=== PATIENT | female | born 1965 | race Caucasian/White ===

== ENCOUNTER 2024-02-14 09:42 | Day surgery (SDC) | payer MEDICARE, OTHER ==
[~2024-02-14 09:42] MED LIST: HYDROmorphone 0.5 MG/0.5 ML SYRINGE IVP PRN
[2024-02-14] MEDS: LACTATED RINGERS 1,000 ML IV SCH (11:14)
[2024-02-14] MEDS: IV FLUID CONTINUATION 1,000 ML IV ONE (11:14)
[2024-02-14] MEDS: ONDANSETRON 4 MG/2 ML VIAL IVP ONE (11:19)
[2024-02-14] MEDS: MIDAZOLAM 2 MG/2 ML VIAL IVP ONE (11:36)
[2024-02-14] MEDS ORDERED: ROPIVACAINE 5 MG/ML 30 ML VIAL ONE (13:46)
[2024-02-14] MEDS ORDERED: ROCURONIUM 10 MG/ML (5 ML VIAL) IV ONE (13:46)
[2024-02-14] MEDS ORDERED: SUCCINYLCHOLINE CHLORIDE 200 MG/10 ML VIAL IV ONE (13:46)
[2024-02-14] MEDS ORDERED: GLYCOPYRROLATE 0.2 MG/ML 2 ML VIAL ONE (13:46)
[2024-02-14] MEDS ORDERED: DEXAMETHASONE SOD PHOSPHATE 4 MG/ML 1 ML VIAL ONE (13:46)
[2024-02-14] MEDS ORDERED: PROPOFOL 10 MG/ML 20 ML VIAL IV ONE (13:46)
[2024-02-14] MEDS ORDERED: PHENYLEPHRINE-0.9% NACL SYG 1,000 MCG/10 ML SYRINGE ONE (13:46)
[2024-02-14] MEDS ORDERED: ePHEDrine 50 MG/ML 1 ML VIAL ONE (13:46)
[2024-02-14] MEDS ORDERED: HYDROmorphone (PF) 1 MG/ML ONE (13:46)
[2024-02-14] MEDS ORDERED: NEOSTIGMINE 1 MG/ML 10 ML VIAL ONE (13:46)
[2024-02-14] MEDS ORDERED: fentaNYL (PF) 50 MCG/ML 2 ML AMP ONE (13:46)
[2024-02-14] MEDS: LACTATED RINGERS 1,000 ML IV ONE (16:05)
[2024-02-14 16:32] VITALS: RESP 16; TEMP 98.3
[2024-02-14 17:37] VITALS: BP 124/69; PULSE 85
--- NOTE | 2024-02-15 07:01 | FL ---
EXAMINATION TYPE: FL guidance operating room, XR humerus LT DATE OF EXAM: 02/14/2024 CLINICAL HISTORY: Left humeral fracture TECHNIQUE: Fluoroscopy. Intraoperative 2 views left humerus. COMPARISON: Outside CT same day. FINDINGS: Fluoroscopic guidance was provided during open reduction internal fixation procedure perfo rmed by Dr. Brown. A total of 86 seconds of fluoroscopic time was utilized during the procedure and 3 spot images was acquired. Total dose area product (DAP) in uGy*m?, mGy*cm? (or similar: 2.1292. Images acquired show placement of a lateral fixating plate 2 acute comminuted displaced fracture of t he left proximal humerus. Improved alignment is seen after reduction and fixation on intraoperative i mages obtained. IMPRESSION: As Above.
--- NOTE | 2024-02-15 10:31 | P.ANPRN ---
Procedure Note - Anesthesia - Nerve Block Performed Left Interscalene Single Time Out Performed: Yes Date of Procedure: 02/14/24 Procedure Start Time: 11:37 Procedure Stop Time: 11:50 Location of Patient: PreOp Indication: Acute Post-Operative Pain, Requested by Surgeon Sedation Type: Sedate with meaningful contact maintained Preparation: Sterile Prep Position: Supine Needle Types: Pajunk Needle Gauge: 21 Ultrasound used to visualize needle placement: Yes Ultrasound used to observe medication spread: Yes Blood Aspirated: No Pain Paresthesia on Injection Noted: No Resistance on Injection: Normal (Lidocaine 0.5% 20 cc plus dexamethasone 4 mg) Image Stored and Saved: Yes Events: Uneventful and Well Tolerated
--- NOTE | 2024-02-15 14:05 | P.OP ---
Date of Procedure: 02/14/24 Preoperative Diagnosis: Left proximal humerus fracture Postoperative Diagnosis: same Procedure(s) Performed: Left proximal humerus open reduction internal fixation Implants: [place] proximal humerus plate, 3 hole Anesthesia: francia SYLVESTER Surgeon: Mojgan Brown Management Tech #1: Concepcion Bob Estimated Blood Loss (ml): 100 Pathology: none sent Condition: stable Disposition: PACU Indications for Procedure: Patient fell on 02/05/24 when she tripped on her shoe. She sustained a displaced proximal humerus fracture. She is quite active and we have decided to proceed with an ORIF. Description of Procedure: The patient, operative extremity, and procedure were identified in the preop holding area. After informed consent was obtained, they received a regional block and was brought back to the OR. All bony and neurovascular structures were well padded. The upper extremity was then prepped and draped in normal sterile fashion. An oblique incision was then made from the corocoid towards the attachment of the deltoid. Dissection was carried down to the delto pec interval and the cephalic vein was identified and mobilized laterally. About 5mm of the pectoralis insertion was released. A jj elevator was swept under the acormion to clear the subdeltoid space. The fracture was identified and was a 4 part fracture. The head and the tuberosities were still connected by soft tissue and well reduced in relation to each other but the shaft was valgus impacted. The fracture was reduced with the aid of a tamp, traction, and strategic placement of a sterile bump. The 3 hole plate was selected and plated just proximal to the top of the greater tuberosity and lateral to the bicepital groove. It was secured provisionally through the oblong hole. K wires were used to hold the reduction through the plate. The distal locking screws were then inserted with care taken to reach subchondral bone without violating the joint. Fluroscopy showed acceptable alignement of the fracture and hardware placement. The distal shaft screws were then inserted. Final exam under fluro showed good reduction and placement of the hardware without any screw penetration. Clinical examination revealed the proximal humerus pieces moving as one. The rotator cuff was intact. The wound was thoroughly irrigated and the wound was closed in a layered fashion with 0 vicryl, 3.0 vicyrl, and 4.0 monocryl. Skin glue was applied and a optifoam dressing. Patient was aroused and brought to PACU in stable condition. The skilled assistance of the YOUNG was needed to exposure, holding the reduction during plate application, and hardware insertion.
== END 2024-02-14 18:04 | disposition home or self-care (01) ==
LOC: OR 09:42
PROVIDERS: ATTEND Orthopaedic Surgery Hand Surgery
DX: S42.202A Unspecified fracture of upper end of left humerus, initial encounter for closed fracture (principal); G89.18 Other acute postprocedural pain; I10 Essential (primary) hypertension; F32.A Depression, unspecified; K21.9 Gastro-esophageal reflux disease without esophagitis; Z79.899 Other long term (current) drug therapy; Z98.890 Other specified postprocedural states; Z90.49 Acquired absence of other specified parts of digestive tract; X58.XXXA Exposure to other specified factors, initial encounter
CPT/HCPCS: 64415; 73060; 23615; C1713; J2250; J0330; J1100; J2710; J0690; J2405; J3010; J1170; J2795; J2704; J2371; J1596